=== PATIENT | male | born 1985 | race Caucasian/White ===

== ENCOUNTER → 2020-12-11 08:52 | Outpatient (CLI) | payer OTHER, SELFPAY ==
[2020-12-11 11:27] LABS: COVID19 -Nasal RAPID Negative (Negative)
== END ==
PROVIDERS: Visit Provider Nurse Practitioner
DX: Z20.822 Contact with and (suspected) exposure to COVID-19 (principal); J02.9 Acute pharyngitis, unspecified; R53.83 Other fatigue
CPT/HCPCS: 87635

== ENCOUNTER → 2020-12-18 11:03 | Outpatient (CLI) | payer OTHER, SELFPAY ==
[2020-12-18 13:38] LABS: COVID19 -Nasal RAPID POSITIVE (Negative)
== END ==
PROVIDERS: Visit Provider Physician Assistant
DX: U07.1 COVID-19 (principal)
CPT/HCPCS: 87635

== ENCOUNTER → 2021-03-12 10:36 | Outpatient (CLI) | payer OTHER, SELFPAY ==
[2021-03-12 11:05] LABS: COVID19 -Nasal RAPID Negative (Negative)
== END ==
PROVIDERS: Visit Provider Physician Assistant
DX: Z20.822 Contact with and (suspected) exposure to COVID-19 (principal); J02.9 Acute pharyngitis, unspecified; R09.81 Nasal congestion
CPT/HCPCS: 87635

== ENCOUNTER 2021-10-12 05:44 | Emergency (ER) | payer OTHER, BC, SELFPAY ==
[2021-10-12 05:50] VITALS: BP 129/69; PULSE 66; RESP 18; TEMP 36.6; O2SAT 97; BMI 25.8
--- NOTE | 2021-10-12 05:59 | DI.RAD.S_ITS ---
PROCEDURE: XR RIBS RT MIN 3V W CXR 1V INDICATIONS: fell friday injurying right side of his chest. TECHNIQUE: To views of the right ribs were acquired, along with a single view chest. COMPARISON: [facility], CT, CT CHEST WO CON, 10/12/2021, 6:54. FINDINGS: Surgical changes and devices: None. Bones and chest wall: Possible nondisplaced right 5th rib fracture. No suspicious bony lesions. Overlying soft tissues appear unremarkable. Lungs and pleura: No pleural effusions or pneumothorax. Lungs appear clear. Mediastinum: Mediastinal contours appear normal. Heart size is normal. IMPRESSION: Possible nondisplaced right 5th rib fracture. Dictated by: Patricia Fernandez M.D. on 10/12/2021 at 7:55 Approved by: Patricia Fernandez M.D. on 10/12/2021 at 7:57
--- NOTE | 2021-10-12 06:41 | DI.CT.S_ITS ---
PROCEDURE: CT CHEST WO CON INDICATIONS: Right side pain/fall/injury/pain TECHNIQUE: Noncontrast 5 mm thick sections acquired from the pulmonary apices to the posterior costophrenic angles. 1 mm lung window, 5 mm thick coronal and sagittal and 7 mm axial MIP reformats were then acquired. For radiation dose reduction, the following was used: automated exposure control, adjustment of mA and/or kV according to patient size. COMPARISON: [facility], CR, XR RIBS RT MIN 3V W CXR 1V, 10/12/2021, 5:53. FINDINGS: Image quality: Excellent. Lungs and pleura: No acute air space opacities. No pleural effusions or pneumothorax. Central and peripheral airways are patent and normal in caliber. Mediastinum: Heart size is normal. No pericardial effusion. No mediastinal adenopathy by size criteria. Thoracic aorta and central pulmonary arteries are normal in size. Esophagus is normal in caliber. Small hiatal hernia. Bones and chest wall: No suspicious bony lesions. No vertebral body compression fractures. No axillary or supraclavicular adenopathy by size criteria. Thyroid gland is normal. Abdomen: Visualized upper abdominal solid organs and bowel loops appear normal in the absence of contrast. IMPRESSION: 1. No acute abnormalities. 2. Small hiatal hernia. No significant discrepancy with the operations supervisor 2nd shift radiology preliminary report. Dictated by: Patricia Fernandez M.D. on 10/12/2021 at 7:50 Approved by: Patricia Fernandez M.D. on 10/12/2021 at 7:53
--- NOTE | 2021-10-12 06:42 | ED.BACK ---
HPI - Back Pain/Injury <Cedric Chandler MD - Last Filed: 10/24/21 18:14> General Chief Complaint: Back Pain/Injury Stated Complaint: rib pain injury 10/07/21 Time Seen by Provider: 10/12/21 06:37 Source: patient History of Present Illness HPI Narrative: Patient complains of right chest wall pain after falling off a uniball this past Friday. Fell onto his right arm and it was tucked against the chest wall. Was doing well until this morning he stretched his arms out and felt a pop in his ribs. No trouble breathing. Denies any other injuries. Related Data Home Medications Medication Instructions Recorded Confirmed No Known Home Medications 03/12/21 03/12/21 Allergies Allergy/AdvReac Type Severity Reaction Status Date / Time No Known Drug Allergies Allergy Unknown Unverified 03/12/21 10:28 SOME FRUIT Allergy Unknown Uncoded 03/12/21 10:28 Review of Systems <Cedric Chandler MD - Last Filed: 10/24/21 18:14> Review of Systems Narrative: GENERAL: Denies chills, fatigue, malaise, fever, sweats. HEENT: Denies sinus pain, ear pain, sore throat RESPIRATORY: Denies dyspnea, cough CARDIOVASCULAR: Denies chest pain, palpitations GASTROINTESTINAL: Denies nausea, vomiting, abdominal pain : Denies dysuria, frequency, hematuria MUSCULOSKELETAL: Positive for muscle or bony pain SKIN: Denies rash, skin lesions NEUROLOGIC: Denies weakness, numbness ROS Unobtainable: All systems reviewed & are unremarkable except as noted in HPI and below Patient History <Cedric Chandler MD - Last Filed: 10/24/21 18:14> Social History Smoking Status: Former smoker Smoking Status: Former smoker alcohol intake frequency: holidays/special occasions only Substance Use Type: does not use Exam <Cedric Chandler MD - Last Filed: 10/24/21 18:14> Narrative Exam Narrative: GENERAL: in no distress, not toxic not dyspneic, short is removed. Patient encounter HEAD: Normocephalic. EYES: Pupils equal round No scleral icterus. NECK: Trachea midline. CARDIOVASCULAR: Regular rate and rhythm without murmurs RESPIRATORY: Clear to auscultation. Breath sounds equal bilaterally. No wheezes, rales, or rhonchi. GASTROINTESTINAL: Abdomen soft, non-tender EXTREMITIES: No gross deformities. Right shoulder nontender no gross deformity no step-off the right shoulder. Strong tobacco wrapping machine tender. Arm is warm soft and pink. BACK: No flank tenderness. NEURO: AOx4. SKIN: Warm and dry no bruising or skin injury on the chest wall on the right side. No crepitus or flail. No abrasion or ecchymosis PSYCH: Not anxious, is cooperative Initial Vital Signs Initial Vital Signs: Vital Signs Temperature 97.9 F 10/12/21 05:50 Pulse Rate 66 10/12/21 05:50 Respiratory Rate 18 10/12/21 05:50 Blood Pressure 129/69 10/12/21 05:50 Pulse Oximetry 97 10/12/21 05:50 Oxygen Delivery Method 10/12/21 05:50 <DO Vangie Ludwig Last Filed: 10/12/21 14:52> Initial Vital Signs Initial Vital Signs: Vital Signs Temperature 97.9 F 10/12/21 05:50 Pulse Rate 66 10/12/21 05:50 Respiratory Rate 18 10/12/21 05:50 Blood Pressure 129/69 10/12/21 05:50 Pulse Oximetry 97 10/12/21 05:50 Oxygen Delivery Method 10/12/21 05:50 Course <Cedric Chandler MD - Last Filed: 10/24/21 18:14> Course Course Narrative: 7:00 a.m.. Sign out to Dr. Hdez, CT chest and chest x-ray results pending Orders Ordered: ED Orders 10/12/21 05:59 XR ribs RT min 3V w CXR1V Stat 10/12/21 06:41 CT chest wo con Stat Vital Signs Vital signs: Vital Signs - 8 hr 10/12/21 08:32 Temperature 97.7 F Pulse Rate 76 Respiratory Rate 18 Blood Pressure 115/77 Pulse Oximetry 99 Oxygen Delivery Method Room Air <DO Vangie uLdwig Last Filed: 10/12/21 14:52> Orders Ordered: ED Orders 10/12/21 05:59 XR ribs RT min 3V w CXR1V Stat 10/12/21 06:41 CT chest wo con Stat Vital Signs Vital signs: Vital Signs - 8 hr 10/12/21 08:32 Temperature 97.7 F Pulse Rate 76 Respiratory Rate 18 Blood Pressure 115/77 Pulse Oximetry 99 Oxygen Delivery Method Room Air <Yenifer Hdez, DO - Last Filed: 10/12/21 14:52> Imaging Data Chest x-ray: Radiologist's Impression: XRay Report Signed Patient: Adrián Mccartney MR#: [id number] : 1985 Acct:[id number] Age/Sex: 36 / M Date of Service: 10/12/21 Loc: ED Accession Number: [id number] ?? Procedure: XR ribs RT min 3V w CXR1V Ordering Provider: Cedric Chandler MD PROCEDURE:? XR RIBS RT MIN 3V W CXR 1V ? INDICATIONS:? fell friday injurying right side of his chest. ? TECHNIQUE:? To views of the right ribs were acquired, along with a single view chest.? ? COMPARISON:? [facility], CT, CT CHEST WO CON, 10/12/2021, 6:54. ? FINDINGS:? ? Surgical changes and devices:? None.? ? Bones and chest wall:? Possible nondisplaced right 5th rib fracture.? No suspicious bony lesions.? Overlying soft tissues appear unremarkable.? ? Lungs and pleura:? No pleural effusions or pneumothorax.? Lungs appear clear.? ? Mediastinum:? Mediastinal contours appear normal.? Heart size is normal.? ? IMPRESSION:? Possible nondisplaced right 5th rib fracture. ? ? Dictated by: Patricia Fernandez M.D. on 10/12/2021 at 7:55 ? ? CT scan - chest: Radiologist's Impression: Signed Patient: Adrián Mccartney MR#: [id number] : 1985 Acct:[id number] Age/Sex: 36 / M Date of Service: 10/12/21 Loc: ED Accession Number: [id number] ?? Procedure: CT chest wo con Ordering Provider: Cedric Chandler MD PROCEDURE:? CT CHEST WO CON ? INDICATIONS:? Right side pain/fall/injury/pain ? TECHNIQUE: Noncontrast 5 mm thick sections acquired from the pulmonary apices to the posterior costophrenic angles.? 1 mm lung window, 5 mm thick coronal and sagittal and 7 mm axial MIP reformats were then acquired.? For radiation dose reduction, the following was used:? automated exposure control, adjustment of mA and/or kV according to patient size.? ? COMPARISON:? [facility], CR, XR RIBS RT MIN 3V W CXR 1V, 10/12/2021, 5:53. ? FINDINGS:? Image quality:? Excellent.? ? Lungs and pleura:? No acute air space opacities.? No pleural effusions or pneumothorax.? Central and peripheral airways are patent and normal in caliber.? ? Mediastinum:? Heart size is normal.? No pericardial effusion.? No mediastinal adenopathy by size criteria.? Thoracic aorta and central pulmonary arteries are normal in size.? Esophagus is normal in caliber.? Small hiatal hernia.? ? Bones and chest wall:? No suspicious bony lesions.? No vertebral body compression fractures.? No axillary or supraclavicular adenopathy by size criteria.? Thyroid gland is normal.? ? Abdomen:? Visualized upper abdominal solid organs and bowel loops appear normal in the absence of contrast.? ? IMPRESSION:? ? 1.? No acute abnormalities.? 2. Small hiatal hernia. ? ? No significant discrepancy with the machinist 2nd shift radiology preliminary report. ? Dictated by: Patricia Fernandez M.D. on 10/12/2021 at 7:50 ? ? MDM Narrative Medical decision making narrative: Patient signed out to me by Dr. Hdez. I have seen evaluated patient myself. He fell a few days ago on landed on his right ribs. He has no paradoxical movement he has no sign of contusion or trauma. Initial x-ray showed possible 5th rib fracture however CT does not confirm any fractures. He said pain was initially better however he stretcher rolled over last night and has an increased pain more than he ever has. He was previously taking Tylenol ibuprofen for it which was working. He has to take drug test well because he works for [employer] he does not want anything else. Discharge Plan Departure Patient Disposition: Home Clinical Impression: Contusion of rib on right side Instructions: DI for Rib Contusion Activity Restrictions/Additional Instructions: *You have been diagnosed with right-sided rib contusion *What to do: Ice 20-30 minutes at a time. Splint and hold with her hand to help with breathing. Find position comfort. This can take a couple of weeks to heal all hopefully starts getting better for you over the next few days *Continue to take medications as directed Ibuprofen 600 mg every 6 hours Tylenol 1000 mg every 6 hours *Follow up with your primary care provider in 2-3 days or call [phone] *Return to ER if you should have increasing pain shortness of breath or any new, worsening or concerning symptoms Prescriptions: No Action No Known Home Medications Referrals: Miscellaneous,Doctor, [Primary Care Provider] - Visit Report Forms: Patient Portal/API
[2021-10-12 08:32] VITALS: BP 115/77; PULSE 76; RESP 18; TEMP 36.5; O2SAT 99
== END 2021-10-12 08:44 | disposition home or self-care (01) ==
PROVIDERS: Emergency Provider Emergency Medicine
DX: S20.211A Contusion of right front wall of thorax, initial encounter (principal); W19.XXXA Unspecified fall, initial encounter
CPT/HCPCS: 71101; 71250; 99283

== ENCOUNTER → 2024-06-22 18:33 | Outpatient (CLI) | payer OTHER, BC, SELFPAY | PROVIDERS: PCP Family Medicine; Visit Provider Student in an Organized Health Care Education/Training Program | DX: J02.9 Acute pharyngitis, unspecified (principal) | CPT/HCPCS: 87070 ==

== ENCOUNTER → 2024-07-02 16:10 | Outpatient (CLI) | payer OTHER, BC, SELFPAY ==
--- NOTE | 2024-07-02 16:12 | DI.RAD.S_ITS ---
PROCEDURE: XR CHEST 2V INDICATIONS: eval lungs TECHNIQUE: 2 views of the chest were acquired. COMPARISON: None. FINDINGS: Surgical changes and devices: None. Lungs and pleura: Lungs are clear. No pleural effusions or pneumothorax. Mediastinum: Mediastinal contours are normal. Heart size is normal. Bones and chest wall: No suspicious bony abnormalities. Soft tissues appear unremarkable. IMPRESSION: No acute cardiothoracic process. Dictated by: Ernesto Carmona M.D. on 07/02/2024 at 19:42 Approved by: Ernesto Carmona M.D. on 07/02/2024 at 19:42
== END ==
PROVIDERS: PCP Family Medicine; Referring Provider Family Medicine; Visit Provider Family Medicine
DX: R05.3 Chronic cough (principal)
CPT/HCPCS: 71046